=== PATIENT | male | born 1970 | race Caucasian/White ===

== ENCOUNTER → 2018-08-16 | Outpatient (CLI) | payer OTHER | END | disposition home or self-care (01) | LOC: CFH 07:01 | PROVIDERS: ATTEND Internal Medicine Rheumatology | DX: M71.22 Synovial cyst of popliteal space [Baker], left knee (principal); M10.062 Idiopathic gout, left knee; Z79.52 Long term (current) use of systemic steroids; Z79.899 Other long term (current) drug therapy | CPT/HCPCS: 70210 ==